=== PATIENT | female | born 1960 | race Caucasian/White ===

== ENCOUNTER 2016-09-14 13:00 | Outpatient (RCR) | payer OTHER ==
[2013-08-17 13:05] VITALS: BMI 26.2
--- NOTE | 2016-09-12 14:07 | RS.OPPTDN ---
Subjective Date of Note: 09/12/16 Visit #: 8 Date of Evaluation: 08/25/16 Treatment Diagnosis: Right foot and ankle pain Current Subjective/complaints:: Patient reports walking on atreadmill for about 20 mins. ,tolerated fairly well. Pain Assessment - Pain Description Pain Description: Sharp (sharp pain is less frequent ), Dull, Aching Pain Description: pain in the dorsal medial foot area and ankle on right. Current Pain Intensity: not rated today - Treatment Modality: Class 4 Laser Parameters/Method Applied: 14 mins total for chronic foot and ankle pain Patient Position: Sitting Interventions - Exercise/Activities/Manual Therapy Exercises/Activities: see MT Total minutes of Exercise: 0 Manual Therapy: 26 mins. deep tissue to plantar aspect of R foot ,and health sanitarian pressure massage to dorsum area. Stretching to heelcord and great toe incorporated with manual therapy. Manual isometrics all dir 2/5. Total minutes of Manual Therapy: 26 HOME EXERCISE PROGRAM: Isometric ankld df, inv, and ever. Red theraband for ankld df, inv, and ever. - Charges Total Direct Minutes: 40 Total Treatment Time: 40 Procedures billed for this date of service:: Laser,manual therapy 2 Assessment: Patient feels the therapy is helping,less intensity of pain ,but still sporadic.She is compliant to HEP. Patient Education: Body/Joint mechanics, Home Exercise Program Patient demonstrates compliance with HEP?: Yes Short Term Goals Goal #1: 4+/5 right ankle strength Goal to be met by: 09/09/16 Progress towards Goal:: Progressing Goal #2: Patient ambulating with good gait pattern and no onset of R foot pain Goal to be met by: 09/09/16 Progress towards Goal:: Progressing Goal #3: Patient independent in beginning HEP. Goal to be met by: 09/09/16 Progress towards Goal:: Progressing Snf Goals Goal #1: 5/5 right ankle strength to give joint stability. Goal to be met by: 09/23/16 Progress towards goal: Progressing Goal #2: Normal gait pattern without pain. Goal to be met by: 09/23/16 Progress towards goal: Progressing Goal #3: Patient able to perform a day of activity without pain onset at night. Goal to be met by: 09/23/16 Progress towards goal: Progressing Plan PLAN OF CARE EXPIRES ON:: 09/23/16 ORDER # VISITS AND/OR THROUGH DATE: 09/23/2016 PLAN: Continue Plan of Care
--- NOTE | 2016-09-14 14:57 | RS.OPPTDN ---
Subjective Date of Note: 09/14/16 Visit #: 9 Date of Evaluation: 08/25/16 Treatment Diagnosis: Right foot and ankle pain Current Subjective/complaints:: Mrs. Sy states she is doing better. States she is going to try to walk on the treadmill again tonight. States the other night she walked for 20 mins at 3.5 mph and did have discomfort around the base of the great toe. Pain Assessment - Pain Description Pain Description: Dull, Aching Pain Description: pain in the dorsal medial foot area and ankle on right. Current Pain Intensity: not rated today - Treatment Modality: Class 4 Laser Parameters/Method Applied: X 12 mins total, to anterior right ankle, longitudinal arch and palmar aspect of foot. Chronic ankle and foot pain programs. Patient Position: Sitting Interventions - Exercise/Activities/Manual Therapy Exercises/Activities: 10 mins isometrics in all directions 2/10 reps, stretching to heelcord, red theraband 2 sets 10 reps all directions. Manual Therapy: 22 mins. deep tissue to plantar aspect of R foot ,and nurse transitional pressure massage to dorsum area. Stretching to heelcord and great toe incorporated with manual therapy. HOME EXERCISE PROGRAM: Isometric ankld df, inv, and ever. Red theraband for ankld df, inv, and ever. - Objective Findings Observations,measurements,etc.: right ankle strength : DF, PF, eversion 4+/5, inversion 4/5. - Charges Total Direct Minutes: 44mins Total Treatment Time: 44 mins Procedures billed for this date of service:: Laser, ex, manual therapy Assessment: patient reports less foot pain, she has been able to increase her activity, such as walking on the treadmill at home. Patient Education: Education of diagnosis, Body/Joint mechanics, Home Exercise Program, Activity Modification Patient demonstrates compliance with HEP?: Yes Short Term Goals Goal #1: 4+/5 right ankle strength Goal to be met by: 09/09/16 Progress towards Goal:: Progressing Comments:: All directions 4+/5, except inversion 4/5. Goal #2: Patient ambulating with good gait pattern and no onset of R foot pain Goal to be met by: 09/09/16 Progress towards Goal:: Progressing Goal #3: Patient independent in beginning HEP. Goal to be met by: 09/09/16 Progress towards Goal:: Progressing [employer] Member Other Ranks Goals Goal #1: 5/5 right ankle strength to give joint stability. Goal to be met by: 09/23/16 Progress towards goal: Progressing Goal #2: Normal gait pattern without pain. Goal to be met by: 09/23/16 Progress towards goal: Progressing Goal #3: Patient able to perform a day of activity without pain onset at night. Goal to be met by: 09/23/16 Progress towards goal: Progressing Plan PLAN OF CARE EXPIRES ON:: 09/23/16 ORDER # VISITS AND/OR THROUGH DATE: 09/23/2016 PLAN: Progress Exercises
== END 2016-09-30 14:25 | disposition home or self-care (01) ==
PROVIDERS: ATTEND Podiatrist
DX: Z47.89 Encounter for other orthopedic aftercare (principal)
CPT/HCPCS: 97039

== ENCOUNTER → 2016-10-11 | Outpatient (RCR) ==
[2013-08-17 13:05] VITALS: BMI 26.2
--- NOTE | 2016-09-30 16:13 | RS.OPPTEV2 ---
Date of Note: 09/30/16 Visit #: 1 Date of Evaluation: 09/30/16 Payer Source: Insurance Treatment Diagnosis: Right shoulder pain History of Condition/Mechanism of Injury:: Patient reports hurting her right shoulder this summer when helping her lift a heavy grate. States she saw her doctor about the shoulder and was given some exercises to work on at home. She performed the exercises and saw minimal improvement. States the shoulder has progressively gotten worse. Prior Level of Function.....Patient was independent with: ADL's, Self Care, Work /Vocation, Caregiving, Ambulation/Mobility, Community Integration/Access Functional Limitations: Sleep, Self Care, ADL's, Reaching, Pushing, Pulling, Lifting, Carrying, Community Access/Integration (opening doors with right UE) Current Subjective/complaints:: Patient reports right shoulder pain that has progressively gotten worse. States she is right hand dominant and she has pain with housework, fixing her hair, getting dressed, and any other reaching to or above shoulder height. Reports right shoulder pain wakes her up at night. States pain is at the shoulder and into the upper arm. Treatment Side (optional): Right Medical History Surgical History: Surgical History Comments:: Left elbow ORIF as adolescent, Bunionectomy left foot. Smoking Status: Never smoker Hx Home Medications: Unable to take anti-inflammatory medication Patient's Goals: Her goal is to regain pain-free functional ROM of the right shoulder. Pain Assessment - Pain Description Pain Location: right shoulder Pain Description: Sharp, Aching Current Pain Intensity: 5/10 Worst Pain Intensity: 8/10 Functional Outcome Measure UE Functional Index: 54 (54/80=32.5% impairment) - G Codes & Severity Modifier G Codes & Modifier: NA Source of G Code score: NA Observation - Observation Posture: Forward Head, Rounded Shoulders, Scapula Asymmetry (right scapula slightly elevated compared to the left.) Handedness: Right Shoulder ROM: Left WFL's Shoulder Muscle Strength: Left WFL's - Right Shoulder ROM Right Shoulder Flexion: 102 (degrees AROM) Right Shoulder Extension: 45 (degrees AROM) Right Shoulder Abduction: 84 (degrees AROM) Right Shoulder Internal Rotation: 40 (degrees AROM) Right Shoulder External Rotation: 55 (degrees AROM) Right Shoulder ROM Limitations: Pain Comments: All right shoulder AROM is limited by pain. She demonstrates functional right elbow, wrist, and hand AROM. PROM of the right shoulder: flexion 110 degrees, abduction 95 degrees, ER 58-60 degrees. - Right Shoulder Strength Right Shoulder Flexion: 4+ Good + Right Shoulder Extension: 5 Normal Right Shoulder Abduction: 4+ Good + Right Shoulder Adduction: 5 Normal Right Shoulder External Rotation: 4 Good Right Shoulder Internal Rotation: 4 Good - Special Tests Shoulder Empty Can (Supraspinatus) Test: Negative Left, Positive Right Shoulder Speed's Sign Test: Negative Left, Negative Right Shoulder Drop Arm Test: Negative Left, Negative Right Shoulder De Leon-Emanuel Impingement Test: Negative Left, Positive Right Band Attacher Strength Left Hand Band Attacher Strength: 58 lbs. Right Hand Band Attacher Strength: 65 lbs. Dynamometer Testing Position: 2nd Position Palpation Comments:: Patient reports tenderness over insertion site of supraspinatus and infraspinatus tendons with palpation to the right shoulder. Sensation - Sensation Right Upper Extremity: Intact/Normal Left Upper Extremity: Intact/Normal - Treatment Modality: Ultrasound Parameters/Method Applied: X 10 mins to right shoulder joint (emphasis on insertion site of supraspinatus and infraspinatus). 1.5 w/cm2 cont. Patient Position: Sitting Interventions - Exercise/Activities/Manual Therapy Exercises/Activities: Patient instructed in Pendulum exercise, wall/finger walking, scapular retraction. During performance of these exercises in department, patient reports pain with scapular retraction. Advised to try over the weekend, but if pain continues with scapular retraction, stop that exercise until next visit. Discussion about home management with use of ice massage or ice pack for inflammation since she is unable to take a anti-inflammatory. Manual Therapy: NA HOME EXERCISE PROGRAM: Pendulum exercise, wall walking in pain-free range. - Charges Total Direct Minutes: 55 mins Total Treatment Time: 55 mins Procedures billed for this date of service:: US ISAIAH Assessment Assessment: Patient presents to therapy with a diagnosis of a partial tear of the right Rotator Cuff. She is right hand dominant and is having pain and difficulty with performing selfcare, ADL's, and any other functional reaching with the right UE. She demonstrates symptoms of impingement and tendinopathy of the Supraspinatus tendon and should benefit from modalities,exercises, and education to reduce impingement symptoms in the right shoulder with functional AROM. Patient Education: Education of diagnosis, Body/Joint mechanics, Home Exercise Program, Home Safety, Activity Modification, Education of Plan of Care Rehab Potential: Good Short Term Goals Goal #1: Patient independent and compliant with HEP. Goal to be met by: 10/07/16 Goal #2: Right shoulder PROM WFL's with minimal discomfort. Goal to be met by: 10/07/16 Goal #3: Tenderness at right shoulder decreased to minimal. Goal to be met by: 10/07/16 Goal #4: Right shoulder pain at worst 5/10. Goal to be met by: 10/07/16 Fdc Goals Goal #1: Pt able to alize/doff clothing with minimal right shoulder discomfort. Goal to be met by: 10/14/16 Goal #2: Score on UE functional scale improved to 10% impairment. Goal to be met by: 10/14/16 Goal #3: Pt able to perform R shoulder AROM to style her hair w/ minimal discomfort. Goal to be met by: 10/14/16 Goal #4: Pt able to sleep at night without interuption from right shoulder pain. Goal to be met by: 10/14/16 Plan - Treatment to be Provided Procedures: Therapeutic Exercises, Manual Therapy, Patient Education Modalities: Ultrasound/Phonophoresis, Cryotherapy - Treatment Plan Frequency: 3 X week Duration: 2 weeks ORDER # VISITS AND/OR THROUGH DATE: 10/14/16 - Treatment Code (1) Shoulder pain Qualifiers: Laterality: right Chronicity: unspecified Qualified Description: Right shoulder pain, unspecified chronicity Qualifier Code(s): (M25.511) Pain in right shoulder (2) Impingement syndrome of right shoulder Comments: M75.41 (3) Supraspinatus syndrome Qualifiers: Laterality: right Qualified Description: Supraspinatus syndrome, right Qualifier Code(s): (M75.101) Unspecified rotator cuff tear or rupture of right shoulder, not specified as traumatic
--- NOTE | 2016-10-04 13:22 | RS.OPPTDN ---
Subjective Date of Note: 10/04/16 Visit #: 2 Date of Evaluation: 09/30/16 Payer Source: Insurance Treatment Diagnosis: Right shoulder pain Current Subjective/complaints:: Patient reports first treatment of US helped reduce pain. Staes she is working on exercise as instructed. Pain Assessment - Pain Description Pain Location: right shoulder Pain Description: Sharp, Aching Pain Description: pain in the dorsal medial foot area and ankle on right. Current Pain Intensity: 5/10 - Treatment Modality: Ultrasound Parameters/Method Applied: [id number] at 1.5w/cm2 to the right shoulder joint prior to EX. Patient Position: Sitting - Heat/Cryotherapy Treatment: Hot Pack (Ended with 10mins to the right shoulder. ) Interventions - Exercise/Activities/Manual Therapy Exercises/Activities: [id number] PROM to the right shoulder all directions including horizontal abduction. Began isometrics for shoulder adduction and extension. Limited isometric shoulder IR and ER. Revewied pendulum/Codmans exercise and wall/finger walking. Total minutes of Exercise: 15mins Manual Therapy: NA HOME EXERCISE PROGRAM: Pendulum exercise, wall walking in pain-free range. Isometric shoulder add and ext. - Charges Total Direct Minutes: 27mins Total Treatment Time: 30mins Procedures billed for this date of service:: US, EX Assessment: Patient progressing with exercise and responding to modalities. Patient Education: Home Exercise Program Patient demonstrates compliance with HEP?: Yes Short Term Goals Goal #1: Patient independent and compliant with HEP. Goal to be met by: 10/07/16 Progress towards Goal:: Progressing Goal #2: Right shoulder PROM WFL's with minimal discomfort. Goal to be met by: 10/07/16 Goal #3: Tenderness at right shoulder decreased to minimal. Goal to be met by: 10/07/16 Goal #4: Right shoulder pain at worst 5/10. Goal to be met by: 10/07/16 Senior Living Goals Goal #1: Pt able to alize/doff clothing with minimal right shoulder discomfort. Goal to be met by: 10/14/16 Goal #2: Score on UE functional scale improved to 10% impairment. Goal to be met by: 10/14/16 Goal #3: Pt able to perform R shoulder AROM to style her hair w/ minimal discomfort. Goal to be met by: 10/14/16 Goal #4: Pt able to sleep at night without interuption from right shoulder pain. Goal to be met by: 10/14/16 Plan PLAN OF CARE EXPIRES ON:: 10/14/16 ORDER # VISITS AND/OR THROUGH DATE: 10/14/16 PLAN: Continue Plan of Care
--- NOTE | 2016-10-06 13:21 | RS.OPPTDN ---
Subjective Date of Note: 10/06/16 Visit #: 3 Date of Evaluation: 09/30/16 Payer Source: Insurance Treatment Diagnosis: Right shoulder pain Current Subjective/complaints:: Patient reports improvement in PROM of the right shoulder today compared to last session. States she is working on HEP and feels US has helped reduce pain. Pain Assessment - Pain Description Pain Location: right shoulder Pain Description: Sharp, Aching Pain Description: pain in the dorsal medial foot area and ankle on right. Current Pain Intensity: 5/10 - Treatment Modality: Ultrasound Parameters/Method Applied: [id number] at 1.5w/cm2 to the right shoulder joint. Patient Position: Sitting - Heat/Cryotherapy Treatment: Hot Pack ([id number] to the right shoulder prior to US and EX. Patient in sitting. ) Interventions - Exercise/Activities/Manual Therapy Exercises/Activities: [id number] PROM to the right shoulder all directions including horizontal abduction. Isometrics for shoulder adduction and extension. Isometric shoulder IR and ER. Revewied pendulum/Codmans. Ball on the well. Yellow theraband for bilateral shoulder ER. Red theraband for scapular retraction. Paitent given copies of new exercises. Total minutes of Exercise: 15mins Manual Therapy: NA HOME EXERCISE PROGRAM: Pendulum exercise, wall walking in pain-free range. Isometric shoulder add and ext. Yellow tband bilateral shoulder ER. Red tband scapular retraction. - Charges Total Direct Minutes: 27mins Total Treatment Time: 47mins Procedures billed for this date of service:: HP, US, EX Assessment: Patient responding to treatment and progressing with exercise. Patient Education: Education of diagnosis, Body/Joint mechanics, Home Exercise Program, Home Safety, Activity Modification Patient demonstrates compliance with HEP?: Yes Short Term Goals Goal #1: Patient independent and compliant with HEP. Goal to be met by: 10/07/16 (50%) Progress towards Goal:: Progressing Goal #2: Right shoulder PROM WFL's with minimal discomfort. Goal to be met by: 10/07/16 (40%) Progress towards Goal:: Progressing Goal #3: Tenderness at right shoulder decreased to minimal. Goal to be met by: 10/07/16 (50%) Progress towards Goal:: Progressing Goal #4: Right shoulder pain at worst 5/10. Goal to be met by: 10/07/16 (80%) Progress towards Goal:: Progressing Environmental Scientists Goals Goal #1: Pt able to alize/doff clothing with minimal right shoulder discomfort. Goal to be met by: 10/14/16 Goal #2: Score on UE functional scale improved to 10% impairment. Goal to be met by: 10/14/16 Goal #3: Pt able to perform R shoulder AROM to style her hair w/ minimal discomfort. Goal to be met by: 10/14/16 Goal #4: Pt able to sleep at night without interuption from right shoulder pain. Goal to be met by: 10/14/16 Plan PLAN OF CARE EXPIRES ON:: 10/14/16 ORDER # VISITS AND/OR THROUGH DATE: 10/14/16 PLAN: Continue Plan of Care (Continue with modalities and progress exercise.)
--- NOTE | 2016-10-11 15:34 | RS.OPPTDN ---
Subjective Date of Note: 10/11/16 Visit #: 4 Date of Evaluation: 09/30/16 Payer Source: Insurance Treatment Diagnosis: Right shoulder pain Current Subjective/complaints:: Patient reports treatment is helping reduce right shoulder pain. States she is working on HEP. Pain Assessment - Pain Description Pain Location: right shoulder Pain Description: Sharp, Aching Pain Description: right shoulder joint and upper arm Current Pain Intensity: 4/10 - Treatment Modality: Ultrasound Parameters/Method Applied: [id number] at 1.5w/cm2 to the right shouldeer joint with focus on the superior and posterior areas. Patient Position: Sitting Interventions - Exercise/Activities/Manual Therapy Exercises/Activities: [id number] PROM to the right shoulder all directions including horizontal abduction. Isometrics for shoulder adduction and extension. Isometric shoulder IR and ER. Codmans. Added 1# dumbell to cuff series. Total minutes of Exercise: 15mins Manual Therapy: NA HOME EXERCISE PROGRAM: Pendulum exercise, wall walking in pain-free range. Isometric shoulder add and ext. Yellow tband bilateral shoulder ER. Red tband scapular retraction. - Charges Total Direct Minutes: 27mins Total Treatment Time: 30mins Procedures billed for this date of service:: US, EX Assessment: Patient progressing well with exercise and reporting improvement in pain. Patient Education: Body/Joint mechanics, Home Exercise Program Patient demonstrates compliance with HEP?: Yes Short Term Goals Goal #1: Patient independent and compliant with HEP. Goal to be met by: 10/07/16 (60%) Progress towards Goal:: Progressing Goal #2: Right shoulder PROM WFL's with minimal discomfort. Goal to be met by: 10/07/16 (50%) Progress towards Goal:: Progressing Goal #3: Tenderness at right shoulder decreased to minimal. Goal to be met by: 10/07/16 (50%) Progress towards Goal:: Progressing Goal #4: Right shoulder pain at worst 5/10. Goal to be met by: 10/07/16 (80%) Progress towards Goal:: Progressing Chemical Engineering Intern Goals Goal #1: Pt able to alize/doff clothing with minimal right shoulder discomfort. Goal to be met by: 10/14/16 Progress towards goal: Progressing Goal #2: Score on UE functional scale improved to 10% impairment. Goal to be met by: 10/14/16 Goal #3: Pt able to perform R shoulder AROM to style her hair w/ minimal discomfort. Goal to be met by: 10/14/16 Goal #4: Pt able to sleep at night without interuption from right shoulder pain. Goal to be met by: 10/14/16 Plan PLAN OF CARE EXPIRES ON:: 10/14/16 ORDER # VISITS AND/OR THROUGH DATE: 10/14/16 PLAN: Continue Plan of Care
== END ==
PROVIDERS: ATTEND Internal Medicine
DX: M75.111 Incomplete rotator cuff tear or rupture of right shoulder, not specified as traumatic (principal)

== ENCOUNTER 2016-11-04 15:00 | Outpatient (RCR) ==
[2013-08-17 13:05] VITALS: BMI 26.2
--- NOTE | 2016-10-13 13:49 | RS.OPPTDN ---
Subjective Date of Note: 10/13/16 Visit #: 5 Date of Evaluation: 09/30/16 Payer Source: Insurance Treatment Diagnosis: Right shoulder pain Current Subjective/complaints:: Patient reports continue progress. States she has discomfort and occasional popping with eccentric flexion and abduction during AAROM. Pain Assessment - Pain Description Pain Location: right shoulder Pain Description: right shoulder joint and upper arm Current Pain Intensity: 4/10 - Treatment Modality: Ultrasound Parameters/Method Applied: [id number] 2 1.5w/cm2 to the right shoulder joint and distal traps prior to EX. Patient in sitting. Patient Position: Sitting Interventions - Exercise/Activities/Manual Therapy Exercises/Activities: [id number] PROM to the right shoulder all directions including horizontal abduction. AAROM and eccentric flexion, scaption, and abduction. Isometrics for shoulder adduction and extension. Isometric shoulder IR and ER. Codmans. Increasead to 2# dumbell to cuff series, 2s/10reps x4 directions. Total minutes of Exercise: 24mins Manual Therapy: NA HOME EXERCISE PROGRAM: Pendulum exercise, wall walking in pain-free range. Isometric shoulder add and ext. Yellow tband bilateral shoulder ER. Red tband scapular retraction. - Charges Total Direct Minutes: 38mins Total Treatment Time: 40mins Procedures billed for this date of service:: US, EX2 Assessment: Patient progressing with exercise and reports improvement of pain and ROM. Patient Education: Home Exercise Program, Activity Modification Patient demonstrates compliance with HEP?: Yes Short Term Goals Goal #1: Patient independent and compliant with HEP. Goal to be met by: 10/07/16 (60%) Progress towards Goal:: Progressing Goal #2: Right shoulder PROM WFL's with minimal discomfort. Goal to be met by: 10/07/16 (50%) Progress towards Goal:: Progressing Goal #3: Tenderness at right shoulder decreased to minimal. Goal to be met by: 10/07/16 (50%) Progress towards Goal:: Progressing Goal #4: Right shoulder pain at worst 5/10. Goal to be met by: 10/07/16 (80%) Progress towards Goal:: Progressing Academic Success Coordinator Goals Goal #1: Pt able to alize/doff clothing with minimal right shoulder discomfort. Goal to be met by: 10/14/16 Progress towards goal: Progressing Goal #2: Score on UE functional scale improved to 10% impairment. Goal to be met by: 10/14/16 Goal #3: Pt able to perform R shoulder AROM to style her hair w/ minimal discomfort. Goal to be met by: 10/14/16 Progress towards goal: Progressing Goal #4: Pt able to sleep at night without interuption from right shoulder pain. Goal to be met by: 10/14/16 Plan PLAN OF CARE EXPIRES ON:: 10/14/16 ORDER # VISITS AND/OR THROUGH DATE: 10/14/16 PLAN: Continue Plan of Care
--- NOTE | 2016-10-17 16:07 | RS.OPPTDN ---
Subjective Date of Note: 10/17/16 Visit #: 6 Date of Evaluation: 09/30/16 Payer Source: Insurance Treatment Diagnosis: Right shoulder pain Current Subjective/complaints:: Patient reports improvement in right shoulder pain and AROM at low levels. States she can perform forward reaching better. She has sharp pain (9/10) with reaching outward into abduction. She also reports moderate pain at night that limits sleep. States she is limited with reaching for high cabinets and fixing her hair. She is unable to open/close a heavy car door with right UE due to pain. Pain Assessment - Pain Description Pain Location: right shoulder Pain Description: right shoulder joint and upper arm Current Pain Intensity: 0/10 at rest, 9/10 with active abduction, 5/10 at night - Treatment Modality: Ultrasound Parameters/Method Applied: [id number] at 1.5w/cm2 to the right shoulder joint and upper arm prior to Ex. Patient in sitting. Interventions - Exercise/Activities/Manual Therapy Exercises/Activities: [id number] PROM to the right shoulder all directions including horizontal abduction. AAROM and eccentric flexion, scaption, and abduction. Isometrics for shoulder adduction and extension. Isometric shoulder IR and ER. Reviewed cuff series. In standing at wall, red theraband for bilateral shoulder ER, 3s/10reps. Began modified wall push-ups. Reviewed safety and HEP. ROM measurements taken. Total minutes of Exercise: 28mins Manual Therapy: NA HOME EXERCISE PROGRAM: Pendulum exercise, wall walking in pain-free range. Isometric shoulder add and ext. Red tband bilateral shoulder ER. Red tband scapular retraction. Wall push-ups. - Objective Findings Observations,measurements,etc.: Active right shoulder flexion 125-128 degrees and abduction to 93 degrees, both limited due to pain. - Charges Total Direct Minutes: 40mins Total Treatment Time: 40mins Procedures billed for this date of service:: US, EX2 Assessment: Patient has progressed well with treatment and exercise. She continues to have some limitations with functional activities and sleeping due to pain. She will benefit from continued treatment and progressive exercise to reduce pain and increase functional activity level. Patient Education: Body/Joint mechanics, Home Exercise Program, Home Safety, Activity Modification, Education of Plan of Care Comments: Discussed progress and agrees with patient to request approval for additional visits due to progress. Patient demonstrates compliance with HEP?: Yes Short Term Goals Goal #1: Patient independent and compliant with HEP. Goal to be met by: 10/07/16 (100%) Progress towards Goal:: Met Goal #2: Right shoulder PROM WFL's with minimal discomfort. Goal to be met by: 10/07/16 (50%) Progress towards Goal:: Progressing Goal #3: Tenderness at right shoulder decreased to minimal. Goal to be met by: 10/07/16 (50%) Progress towards Goal:: Progressing Goal #4: Right shoulder pain at worst 5/10. Goal to be met by: 10/07/16 (80%) Progress towards Goal:: Progressing Prison Goals Goal #1: Pt able to alize/doff clothing with minimal right shoulder discomfort. Goal to be met by: 10/17/16 (30%) Progress towards goal: Progressing Goal #2: Score on UE functional scale improved to 10% impairment. Goal to be met by: 10/17/16 Progress towards goal: Progressing Goal #3: Pt able to perform R shoulder AROM to style her hair w/ minimal discomfort. Goal to be met by: 10/17/16 Progress towards goal: Progressing Goal #4: Pt able to sleep at night without interuption from right shoulder pain. Goal to be met by: 10/17/16 Plan PLAN OF CARE EXPIRES ON:: 10/17/16 ORDER # VISITS AND/OR THROUGH DATE: 10/17/16 Extended to complete visits PLAN: Hold (Hold chart pending approval for additional visits. Brenda has progressed well and has potential to make additional progress and return to PLOF.)
--- NOTE | 2016-10-25 16:33 | RS.OPPTDN ---
Subjective Date of Note: 10/25/16 Visit #: 7 Date of Evaluation: 09/30/16 Payer Source: Insurance Treatment Diagnosis: Right shoulder pain Current Subjective/complaints:: Patient reports slow but steady progress with treatment and exercise. Reports improved AAROM. Pain Assessment - Pain Description Pain Location: right shoulder Pain Description: right shoulder joint and upper arm Current Pain Intensity: 0/10 at rest, 7/10 with active abduction, Other Comments regarding Pain:: continues to have moderate pain when trying to rest at night. - Treatment Modality: Ultrasound Parameters/Method Applied: [id number] @ 1.5w/cm2 to the right shoulder joint prior to EX. Patient Position: Sitting Interventions - Exercise/Activities/Manual Therapy Exercises/Activities: [id number] PROM to the right shoulder all directions including horizontal abduction. AAROM and eccentric flexion, scaption, and abduction. Isometrics for shoulder adduction and extension. Isometric shoulder IR and ER. Active right shoulder flexion in "empty-can" position. Witheld ball on wall and cuff series today. Reviewed safety and HEP. Total minutes of Exercise: 20mins Manual Therapy: NA HOME EXERCISE PROGRAM: Pendulum exercise, wall walking in pain-free range. Isometric shoulder add and ext. Red tband bilateral shoulder ER. Red tband scapular retraction. Wall push-ups. - Charges Total Direct Minutes: 32mins Total Treatment Time: 35mins Procedures billed for this date of service:: US, EX Assessment: Patient progressing with reports of redution in pain and with increase in AROM and AAROM. Patient Education: Body/Joint mechanics, Home Exercise Program Patient demonstrates compliance with HEP?: Yes Short Term Goals Goal #1: Patient independent and compliant with HEP. Goal to be met by: 10/07/16 (100%) Progress towards Goal:: Met Goal #2: Right shoulder PROM WFL's with minimal discomfort. Goal to be met by: 10/07/16 (100%) Progress towards Goal:: Met Goal #3: Tenderness at right shoulder decreased to minimal. Goal to be met by: 10/07/16 (75%) Progress towards Goal:: Progressing Goal #4: Right shoulder pain at worst 5/10. Goal to be met by: 10/07/16 (80%) Progress towards Goal:: Progressing Halfway Goals Goal #1: Pt able to alize/doff clothing with minimal right shoulder discomfort. Goal to be met by: 11/11/16 (50%) Progress towards goal: Progressing Goal #2: Score on UE functional scale improved to 10% impairment. Goal to be met by: 11/11/16 Progress towards goal: Progressing Goal #3: Pt able to perform R shoulder AROM to style her hair w/ minimal discomfort. Goal to be met by: 11/11/16 Progress towards goal: Progressing Goal #4: Pt able to sleep at night without interuption from right shoulder pain. Goal to be met by: 11/11/16 Plan PLAN OF CARE EXPIRES ON:: 11/11/16 ORDER # VISITS AND/OR THROUGH DATE: 11/11/16 Extended with new visit approval PLAN: Continue Plan of Care (Continue and progress exercise to reduce pain and increase functional activity level.)
--- NOTE | 2016-10-28 16:23 | RS.OPPTDN ---
Subjective Date of Note: 10/28/16 Visit #: 8 Date of Evaluation: 09/30/16 Payer Source: Insurance Treatment Diagnosis: Right shoulder pain Current Subjective/complaints:: Patient reports continued improvement. States she is able to perform light activities that are low and in front of her. States she has pain with reaching outward into abduction. She continues to be cautious with active reaching and all HEP. Pain Assessment - Pain Description Pain Location: right shoulder Pain Description: right shoulder joint and upper arm Current Pain Intensity: 0/10 at rest, 6-7/10 with active abduction, - Treatment Modality: Ultrasound Parameters/Method Applied: [id number] at 1.5w/cm2 to the right shoulder joint prior to EX. Patient in sitting. Interventions - Exercise/Activities/Manual Therapy Exercises/Activities: [id number] PROM to the right shoulder all directions including horizontal abduction. AAROM and eccentric flexion, scaption, and abduction. Isometrics for shoulder adduction and extension. Isometric shoulder IR and ER. Active right shoulder flexion in "empty-can" position. Reveiwed ball on wall, theraband for retractio n and shoulder ER. Also, wand in sitting and semi-reclined position. Added ER overhead in supine only. Total minutes of Exercise: 22mins Manual Therapy: NA HOME EXERCISE PROGRAM: Pendulum exercise, wall walking in pain-free range. Isometric shoulder add and ext. Red tband bilateral shoulder ER. Red tband scapular retraction. Wall push-ups. - Objective Findings Observations,measurements,etc.: Active assisted right shoulder flexion to 165- 170 degrees. - Charges Total Direct Minutes: 32mins Total Treatment Time: 35mins Procedures billed for this date of service:: US, EX Assessment: Patient continues to report imprvement and increase strengthening exercise. Short Term Goals Goal #1: Patient independent and compliant with HEP. Goal to be met by: 10/07/16 (100%) Progress towards Goal:: Met Goal #2: Right shoulder PROM WFL's with minimal discomfort. Goal to be met by: 10/07/16 (100%) Progress towards Goal:: Met Goal #3: Tenderness at right shoulder decreased to minimal. Goal to be met by: 10/07/16 (75%) Progress towards Goal:: Progressing Goal #4: Right shoulder pain at worst 5/10. 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 Goal to be met by: 11/11/16 (60%) Progress towards goal: Progressing Goal #2: Score on UE functional scale improved to 10% impairment. Goal to be met by: 11/11/16 Progress towards goal: Progressing Goal #3: Pt able to perform R shoulder AROM to style her hair w/ minimal discomfort. Goal to be met by: 11/11/16 (50%) Progress towards goal: Progressing Goal #4: Pt able to sleep at night without interuption from right shoulder pain. Goal to be met by: 11/11/16 Progress towards goal: Progressing Plan PLAN OF CARE EXPIRES ON:: 11/11/16 ORDER # VISITS AND/OR THROUGH DATE: 11/11/16 Extended with new visit approval PLAN: Continue Plan of Care (Continue modalities and steady progression of exercise to increase strength, ROM, and functional activity level.)
--- NOTE | 2016-10-31 14:37 | RS.OPPTDN ---
Subjective Date of Note: 10/31/16 Visit #: 9 Date of Evaluation: 09/30/16 Payer Source: Insurance Treatment Diagnosis: Right shoulder pain Current Subjective/complaints:: Patient reports increased pain with active motion exercises. Pain Assessment - Pain Description Pain Location: right shoulder Pain Description: right shoulder joint and upper arm Current Pain Intensity: 0/10 at rest, 6-7/10 with active abduction and empty- can position. - Treatment Modality: Ultrasound Parameters/Method Applied: [id number] at 1.5w/cm2 to the right shoulder joint and upper arm prior to EX. Patient Position: Sitting Interventions - Exercise/Activities/Manual Therapy Exercises/Activities: [id number] PROM to the right shoulder all directions including horizontal abduction. AAROM and eccentric flexion, scaption, and abduction. Isometrics for shoulder adduction and extension. Isometric shoulder IR and ER. Active right shoulder flexion in "empty-can" position. Ball on wall. Theraband for retraction and shoulder ER. Wand in sitting for flexion and overhead chest press. Total minutes of Exercise: 25mins Manual Therapy: NA HOME EXERCISE PROGRAM: Pendulum exercise, wall walking in pain-free range. Isometric shoulder add and ext. Red tband bilateral shoulder ER. Red tband scapular retraction. Wall push-ups. - Charges Total Direct Minutes: 39mins Total Treatment Time: 40mins Procedures billed for this date of service:: US, EX2 Assessment: Patient progressing well with exercise. Patient continues to have difficulty with empty-can exercise to isolate supraspinatus. Patient Education: Home Exercise Program, Home Safety, Activity Modification Patient demonstrates compliance with HEP?: Yes Short Term Goals Goal #1: Patient independent and compliant with HEP. Goal to be met by: 10/07/16 (100%) Progress towards Goal:: Met Goal #2: Right shoulder PROM WFL's with minimal discomfort. Goal to be met by: 10/07/16 (100%) Progress towards Goal:: Met Goal #3: Tenderness at right shoulder decreased to minimal. Goal to be met by: 10/07/16 (75%) Progress towards Goal:: Progressing Goal #4: Right shoulder pain at worst 5/10. Goal to be met by: 10/07/16 (80%) Progress towards Goal:: Progressing Life Educator Goals Goal #1: Pt able to alize/doff clothing with minimal right shoulder discomfort. Goal to be met by: 11/11/16 (60%) Progress towards goal: Progressing Goal #2: Score on UE functional scale improved to 10% impairment. Goal to be met by: 11/11/16 Progress towards goal: Progressing Goal #3: Pt able to perform R shoulder AROM to style her hair w/ minimal discomfort. Goal to be met by: 11/11/16 (50%) Progress towards goal: Progressing Goal #4: Pt able to sleep at night without interuption from right shoulder pain. Goal to be met by: 11/11/16 Progress towards goal: Progressing Plan PLAN OF CARE EXPIRES ON:: 11/11/16 ORDER # VISITS AND/OR THROUGH DATE: 11/11/16 Extended with new visit approval PLAN: Continue Plan of Care
--- NOTE | 2016-11-07 08:34 | RS.OPPTDN ---
Subjective Date of Note: 11/04/16 Visit #: 10 Date of Evaluation: 09/30/16 Payer Source: Insurance Treatment Diagnosis: Right shoulder pain Current Subjective/complaints:: Patient states ROM is better, but she continues to have pain. She hopes she will be able to have more therapy. Reports most pain is in the field director lateral aspect of the shoulder joint. Pain Assessment - Pain Description Pain Location: right shoulder Pain Description: posterior lateral aspect of shoulder joint and upper arm Current Pain Intensity: 0/10 at rest - Treatment Modality: Ultrasound Parameters/Method Applied: 14 mins @ 1.5 w/cm2 continuous to right shoulder joint Treatment Area: lateral and posterior/lateral aspect of GH joint Patient Position: Sitting Interventions - Exercise/Activities/Manual Therapy Exercises/Activities: [id number] PROM to the right shoulder all directions including horizontal abduction. Isometrics for shoulder adduction and extension. Isometric shoulder IR and ER. Ball on wall. Theraband for retraction and shoulder ER. Manual Therapy: Trigger point work at Teres Major and minor X 8 mins HOME EXERCISE PROGRAM: Pendulum exercise, wall walking in pain-free range. Isometric shoulder add and ext. Red tband bilateral shoulder ER. Red tband scapular retraction. Wall push-ups. - Charges Total Direct Minutes: 48 mins Total Treatment Time: 48 mins Procedures billed for this date of service:: US, EX Assessment: Patient with reports of benefit from therapy, but continued pain with certain activities. She still has enough shoulder pain that she hopes she will be able to get more visits approved. Most pain with activities in the department is in the region of Teres major and minor. She demonstrates active trigger points in these muscles and will benefit from manual therapy to reduce discomfort and firing. Patient Education: Education of diagnosis, Body/Joint mechanics, Home Exercise Program Patient demonstrates compliance with HEP?: Yes Short Term Goals Goal #1: Patient independent and compliant with HEP. Goal to be met by: 10/07/16 (100%) Progress towards Goal:: Met Goal #2: Right shoulder PROM WFL's with minimal discomfort. Goal to be met by: 10/07/16 (100%) Progress towards Goal:: Met Goal #3: Tenderness at right shoulder decreased to minimal. Goal to be met by: 10/07/16 (75%) Progress towards Goal:: Progressing Goal #4: Right shoulder pain at worst 5/10. Goal to be met by: 10/07/16 (80%) Progress towards Goal:: Progressing Halfway Goals Goal #1: Pt able to alize/doff clothing with minimal right shoulder discomfort. Goal to be met by: 11/11/16 (60%) Progress towards goal: Progressing Goal #2: Score on UE functional scale improved to 10% impairment. Goal to be met by: 11/11/16 Progress towards goal: Progressing Goal #3: Pt able to perform R shoulder AROM to style her hair w/ minimal discomfort. Goal to be met by: 11/11/16 (50%) Progress towards goal: Progressing Goal #4: Pt able to sleep at night without interuption from right shoulder pain. Goal to be met by: 11/11/16 Progress towards goal: Progressing Plan PLAN OF CARE EXPIRES ON:: 11/11/16 ORDER # VISITS AND/OR THROUGH DATE: 11/11/16 Extended with new visit approval PLAN: Continue Plan of Care
== END 2016-11-08 ==
PROVIDERS: ATTEND Internal Medicine
DX: M75.111 Incomplete rotator cuff tear or rupture of right shoulder, not specified as traumatic (principal)

== ENCOUNTER 2016-11-11 15:00 | Outpatient (RCR) ==
[2013-08-17 13:05] VITALS: BMI 26.2
--- NOTE | 2016-11-10 10:23 | RS.OPPTDN ---
Subjective Date of Note: 11/09/16 Visit #: 11 Date of Evaluation: 09/30/16 Payer Source: Insurance Treatment Diagnosis: Right shoulder pain Current Subjective/complaints:: Patient reports continued improvement with therapy. Pain Assessment - Pain Description Pain Location: right shoulder Pain Description: posterior lateral aspect of shoulder joint and upper arm Current Pain Intensity: 0/10 at rest - Treatment Modality: Ultrasound Parameters/Method Applied: [id number] at 1.5w/cm2 to the right shoulder joint and distal traps, with focus on posterior joint prior to EX. Patient in sitting. Patient Position: Sitting Interventions - Exercise/Activities/Manual Therapy Exercises/Activities: [id number] PROM to the right shoulder all directions including horizontal abduction and adduction. Isometrics for shoulder adduction and extension. Isometric shoulder IR and ER. Reviewed all HEP and advised patient to focus on isometrics and gentle ROM. Total minutes of Exercise: 15mins Manual Therapy: Trigger point work at Teres Major and minor and to the traps, x12 mins. Total minutes of Manual Therapy: 12mins HOME EXERCISE PROGRAM: Pendulum exercise, wall walking in pain-free range. Isometric shoulder add and ext. Red tband bilateral shoulder ER. Red tband scapular retraction. Wall push-ups. - Charges Total Direct Minutes: 39mins Total Treatment Time: 39mins Procedures billed for this date of service:: US, MT, EX Assessment: Patient continues to report slow but steady progress with pain and active motion. States she can perform more light daily activities at low levels. Patient Education: Body/Joint mechanics, Home Exercise Program, Activity Modification Patient demonstrates compliance with HEP?: Yes Short Term Goals Goal #1: Patient independent and compliant with HEP. Goal to be met by: 10/07/16 (100%) Progress towards Goal:: Met Goal #2: Right shoulder PROM WFL's with minimal discomfort. Goal to be met by: 10/07/16 (100%) Progress towards Goal:: Met Goal #3: Tenderness at right shoulder decreased to minimal. Goal to be met by: 10/07/16 (75%) Progress towards Goal:: Progressing Goal #4: Right shoulder pain at worst 5/10. 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 Goal to be met by: 11/11/16 (70%) Progress towards goal: Progressing Goal #2: Score on UE functional scale improved to 10% impairment. Goal to be met by: 11/11/16 Progress towards goal: Progressing Goal #3: Pt able to perform R shoulder AROM to style her hair w/ minimal discomfort. Goal to be met by: 11/11/16 (50%) Progress towards goal: Progressing Goal #4: Pt able to sleep at night without interuption from right shoulder pain. Goal to be met by: 11/11/16 Progress towards goal: Progressing Plan PLAN OF CARE EXPIRES ON:: 11/11/16 ORDER # VISITS AND/OR THROUGH DATE: 11/11/16 Extended with new visit approval PLAN: Continue Plan of Care (Continue this week to reduce pain and increase functional use of the right UE.)
--- NOTE | 2016-11-11 16:39 | RS.OPPTDN ---
Subjective Date of Note: 11/11/16 Visit #: 12 Date of Evaluation: 09/30/16 Payer Source: Insurance Treatment Diagnosis: Right shoulder pain Current Subjective/complaints:: Patient says she has improved and would like to continue coming to PT for at least 2 more weeks. She says her pain has been less and mobility has improved. She says she still has trouble with ADLs, housekeeping, and grooming hair. Pain Assessment - Pain Description Pain Location: right shoulder Pain Description: posterior lateral aspect of shoulder joint and upper arm Current Pain Intensity: 0/10 at rest - Treatment Modality: Ultrasound Parameters/Method Applied: continuous @ 1.5 w/cm2 x 12 mins to the R UT and posterior shoulder Patient Position: Sitting Interventions - Exercise/Activities/Manual Therapy Exercises/Activities: [id number] PROM to the right shoulder all directions including horizontal abduction and adduction. Isometrics for shoulder adduction and extension. Isometric shoulder IR and ER. Reviewed all HEP and advised patient to focus on isometrics and gentle ROM. Patient completed reassessment. Manual Therapy: Trigger point work at Teres Major and minor and to the traps, x12 mins. HOME EXERCISE PROGRAM: Pendulum exercise, wall walking in pain-free range. Isometric shoulder add and ext. Red tband bilateral shoulder ER. Red tband scapular retraction. Wall push-ups. - Charges Total Direct Minutes: 39 Total Treatment Time: 39 Procedures billed for this date of service:: u/s, MT, EX Assessment: Patient has improved per UE Functional Index from 32% impairment to 27%. She demo Active shoulder flexion to 155 degrees and abd only to 90 degrees before stopping due to pain extending down the R upper, lateral arm. Bronwyn continues to demo mod muscle guarding throughout the R UT, but eases with MT. She continues to work on HEP. Patient Education: Education of diagnosis, Body/Joint mechanics, Home Exercise Program, Home Safety, Activity Modification, Education of Plan of Care Patient demonstrates compliance with HEP?: Yes Short Term Goals Goal #1: Patient independent and compliant with HEP. Goal to be met by: 10/07/16 (100%) Progress towards Goal:: Met Goal #2: Right shoulder PROM WFL's with minimal discomfort. Goal to be met by: 10/07/16 (100%) Progress towards Goal:: Met Goal #3: Tenderness at right shoulder decreased to minimal. Goal to be met by: 10/07/16 (75%) Progress towards Goal:: Progressing Goal #4: Right shoulder pain at worst 5/10. Goal to be met by: 10/07/16 (80%) Progress towards Goal:: Progressing Residential Goals Goal #1: Pt able to alize/doff clothing with minimal right shoulder discomfort. Goal to be met by: 11/11/16 (70%) Progress towards goal: Progressing Goal #2: Score on UE functional scale improved to 10% impairment. Goal to be met by: 11/11/16 Progress towards goal: Progressing Goal #3: Pt able to perform R shoulder AROM to style her hair w/ minimal discomfort. Goal to be met by: 11/11/16 (50%) Progress towards goal: Progressing Goal #4: Pt able to sleep at night without interuption from right shoulder pain. Goal to be met by: 11/11/16 Progress towards goal: Progressing Plan PLAN OF CARE EXPIRES ON:: 11/11/16 ORDER # VISITS AND/OR THROUGH DATE: 11/11/16 Extended with new visit approval Comments:: Patient would benefit from 2-3 more weeks of PT based on her progress so far.
--- NOTE | 2016-12-22 09:04 | RS.QUICKDC ---
Discharge from PT Date of Discharge: 12/22/16 Number of Visits: 12 Reason for Discharge: Patient has attended original order x 6 visits and a continuation order for 6 more sessions. She reported relief of R shoulder pain and improved mobility, but remained with limitation in ROM and function (such as difficulty grooming hair and housekeeping). Patient's insurance would not allow for any further therapy at this time. Patient received u/s, ex, and MT to the R ME. For specific information, see daily notes.
== END 2016-12-09 ==
PROVIDERS: ATTEND Internal Medicine
DX: M75.111 Incomplete rotator cuff tear or rupture of right shoulder, not specified as traumatic (principal)